=== PATIENT | female | born 1960 | race Caucasian/White ===

== ENCOUNTER 2021-02-21 07:48 | Outpatient (RCR) | payer BC, OTHER, SELFPAY ==
[2021-02-21] MEDS: ACETAMINOPHEN 325 MG TABLET 650 MG PO (15:37)
[2021-02-21] MEDS: FAMOTIDINE 20 MG TABLET PO (15:37)
[2021-02-21] MEDS: diphenhydrAMINE HCl CAP 25 MG CAPSULE PO (15:37)
[2021-02-21 15:38] VITALS: BP 140/58; PULSE 80; RESP 20; TEMP 36.3; O2SAT 99
[2021-02-21 17:00] VITALS: BP 144/66; PULSE 66; O2SAT 98
== END 2021-02-21 17:00 ==
LOC: AMCINF 07:48
PROVIDERS: PCP Nurse Practitioner Family; Referring Provider Nurse Practitioner Family; Visit Provider Internal Medicine Hematology & Oncology
DX: U07.1 COVID-19 (principal); I10 Essential (primary) hypertension; J44.9 Chronic obstructive pulmonary disease, unspecified
CPT/HCPCS: A9270; M0247

== ENCOUNTER → 2021-07-27 15:25 | Outpatient (CLI) | payer BC, OTHER, SELFPAY ==
--- NOTE | ~2021-07-27 | CT_ITS ---
EXAMINATION: CT abdomen pelvis wo con DATE: 07/27/2021 15:44 INDICATION: Lower abdominal and pelvic pain. Frequent urination, urinary urgency. TECHNIQUE: Computed tomography (CT) of the abdomen and pelvis was performed without intravenous contr ast. Automated exposure control and iterative reconstruction technique were employed. Exam dose: 253 .07 mGy-cm total exam DLP. COMPARISON: None. FINDINGS: Mild to moderate emphysematous changes are noted in the included lower lung zones. No infil trate or consolidation is noted. Normal heart size. No pericardial or pleural effusion. The liver, gallbladder, bile ducts, spleen, pancreas and pancreatic duct are unremarkable. Normal morphology of the adrenal glands. No renal mass lesion is evident on this limited noncontrast examination. No urinary tract calculus or hydroureteronephrosis. The urinary bladder is unremarkable. Status post hysterectomy. There is calcification of the abdominal aorta and prominent calcification at the origin the celiac an d superior mesenteric and renal arteries, including very prominent calcification of the proximal righ t renal artery.. No abdominal aortic aneurysm. There is prominent calcification of the iliac and femo ral arteries. No intraperitoneal or retroperitoneal or pelvic mass lesion or adenopathy or ascites. There are numerous diverticula of the sigmoid and descending colon; no CT evidence of diverticulitis. No bowel obstruction or intraperitoneal free air. Very small fat-containing umbilical hernia. Included skeletal structures are unremarkable. IMPRESSION: Mild to moderate emphysema Diverticulosis of left colon; no evidence of diverticulitis Status post hysterectomy Reviewed, dictated and finalized at [facility]. Reviewed, dictated and finalized at [facility].
== END ==
PROVIDERS: PCP Pediatrics; Visit Provider Nurse Practitioner Family
DX: R10.9 Unspecified abdominal pain (principal); K57.30 Diverticulosis of large intestine without perforation or abscess without bleeding; K42.9 Umbilical hernia without obstruction or gangrene
CPT/HCPCS: 74176

== ENCOUNTER → 2021-10-13 10:43 | Outpatient (CLI) | payer BC, OTHER, SELFPAY ==
--- NOTE | ~2021-10-13 | MR_ITS ---
EXAMINATION: MR lumbar spine wo con DATE: 10/13/2021 11:35 INDICATION: Chronic low back pain. TECHNIQUE: Magnetic resonance imaging (MRI) of the lumbar spine was performed without intravenous con trast. Sequences included sagittal T2-weighted FSE, sagittal T2-weighted FS FSE, sagittal T1-weighted FSE, and axial T2-weighted FSE. COMPARISON: None FINDINGS: There is 4 degrees levocurvature of lumbar spine. There is 3 mm retrolisthesis of L4 on L5. Vertebral body heights are normal. There is mildly decreased disc height at L2-L3 and L3-L4 and mode rately decreased disc height at L4-L5. The distal spinal cord signal intensity is normal. The conus m edullaris is at L1-L2. The following disc levels are specifically discussed: L1-L2: The disc does not extend beyond the endplate margin. There is mild bilateral facet joint osteo arthritis. There is no neural foraminal stenosis. There is no central canal stenosis. L2-L3: The disc is bulging. There is mild bilateral facet joint osteoarthritis. There is mild bilater al neural foraminal stenosis. There is mild central canal stenosis. L3-L4: The disc is bulging. There is mild bilateral facet joint osteoarthritis. There is mild bilater al neural foraminal stenosis. There is mild central canal stenosis. L4-L5: The disc is bulging. There is moderate right and mild left facet joint osteoarthritis. There i s moderate right and mild left neural foraminal stenosis. There is mild central canal stenosis. L5-S1: The disc does not extend beyond the endplate margin. There is moderate right and mild left fac et joint osteoarthritis. There is mild right neural foraminal stenosis. There is no central canal alvaro nosis. IMPRESSION: 1. Moderate lumbar spondylosis. Reviewed, dictated and finalized at [facility].
== END ==
PROVIDERS: PCP Pediatrics; Visit Provider Nurse Practitioner Family
DX: M47.896 Other spondylosis, lumbar region (principal)
CPT/HCPCS: 72148

== ENCOUNTER 2023-09-11 10:59 | Outpatient (CLI) | payer BC, SELFPAY ==
--- NOTE | ~2023-09-11 | CT_ITS ---
EXAMINATION: CT abdomen pelvis wo con DATE: 09/11/2023 11:24 INDICATION: Epigastric pain TECHNIQUE: Computed tomography (CT) of the abdomen and pelvis was performed without intravenous contr ast. The dose-length product was 152.69 mGy-cm. Automated exposure control and iterative reconstructi on technique were employed. COMPARISON: CT dated 07/28/2019. FINDINGS: There is emphysema. Lung bases are unremarkable. Heart size normal. No significant pleural or pericardial effusion. Nonobstructive bowel gas pattern. Colonic diverticulosis without evidence fo r diverticulitis. The liver, spleen, pancreas, adrenal glands and kidneys are unremarkable. Gallbladder is present. No free air or free fluid. Moderate lumbar spondylosis at L4-5. No acute osseous abnormality. IMPRESSION: 1. No acute abdominal abnormality. Reviewed, dictated and finalized at [facility].
== END 2023-09-11 11:00 ==
LOC: MICIMG 11:01
PROVIDERS: PCP Pediatrics; Visit Provider Family Medicine
DX: E53.8 Deficiency of other specified B group vitamins (principal); E11.22 Type 2 diabetes mellitus with diabetic chronic kidney disease; N18.32 Chronic kidney disease, stage 3b; Z72.0 Tobacco use
CPT/HCPCS: 74176

== ENCOUNTER 2023-11-18 00:51 | Day surgery (SDC) | payer BC, SELFPAY ==
[2023-11-04 14:29] VITALS: BMI 17.2
[2023-11-18 13:29] VITALS: BP 113/50; PULSE 66; RESP 16; TEMP 36.1; O2SAT 100; BMI 17.5
[2023-11-18] MEDS: LACTATED RINGERS 1,000 ML 150 ML IV CONT (13:54)
--- NOTE | 2023-11-18 14:01 | WPDANESEPPF ---
Anes - Initial Pre Proc Eval Procedure: Operation Date: 11/18/23 14:30 Proposed Procedures p Esophagogastroduodenoscopy - Brenton Mai MD Date/Time: 11/18/23 14:01 Surgeon: Brenton Mai MD Pre Op Diagnosis: Epigastric pain, Nausea Patient Data Age: 63 Gender: F Height: 1.52 m Weight: 40.8 kg Last Vital Signs Temp 97.0 F L 11/18/23 13:29 Pulse 66 11/18/23 13:29 Resp 16 11/18/23 13:29 BP 113/50 L 11/18/23 13:29 Pulse Ox 100 11/18/23 13:29 O2 Del Method Room Air 11/18/23 13:29 Allergies Allergy/AdvReac Type Severity Reaction Status Date / Time amoxicillin [From Augmentin] AdvReac Vomiting Verified 11/18/23 13:36 bupropion [From Wellbutrin] AdvReac Unknown Verified 11/18/23 13:36 clavulanic acid AdvReac Vomiting Verified 11/18/23 13:36 [From Augmentin] doxycycline AdvReac Unknown Verified 11/18/23 13:36 hydrochlorothiazide AdvReac Dizziness Verified 11/18/23 13:36 naproxen AdvReac Itching Verified 11/18/23 13:36 Home Medications Medication Instructions Recorded Confirmed Type alprazolam 0.5 mg tablet 0.5 mg PO BID 02/21/21 11/04/23 History aspirin 81 mg tablet 81 mg PO DAILY 02/21/21 11/04/23 History atorvastatin 40 mg tablet 40 mg PO DAILY 02/21/21 11/04/23 History fluoxetine 20 mg tablet 40 mg PO DAILY 02/21/21 11/04/23 History magnesium 200 mg tablet 200 mg PO DAILY 02/21/21 11/04/23 History potassium 99 mg tablet 99 mg PO DAILY 02/21/21 11/04/23 History spironolactone 25 mg tablet 50 mg PO DAILY 02/21/21 11/04/23 History albuterol sulfate 2.5 mg/3 mL 2.5 mg continuous nebulization PRN 11/04/23 11/04/23 History (0.083 %) solution for nebulization PRN Shortness Of Breath Or Wheezing buspirone 7.5 mg tablet 7.5 mg PO DAILY 11/04/23 11/04/23 History carvedilol 25 mg tablet 25 mg PO BID 11/04/23 11/04/23 History famotidine 20 mg tablet 20 mg PO DAILY 11/04/23 11/04/23 History ferrous sulfate 324 mg (65 mg 324 mg PO DAILY 11/04/23 11/04/23 History iron) tablet,delayed release fluticasone 250 mcg-salmeterol 50 1 inh inhalation BID 11/04/23 11/04/23 History mcg/dose blistr powdr for inhalation (Advair Diskus) isosorbide mononitrate 60 mg 60 mg PO DAILY 11/04/23 11/04/23 History tablet,extended release 24 hr ondansetron 4 mg disintegrating 4 mg translingual PRN PRN Nausea 11/04/23 11/04/23 History tablet terazosin 2 mg capsule 4 mg PO HS 11/04/23 11/04/23 History Patient hx anesthesia problems: none Family hx anesthesia problems: none Results Review: All pre-operative results and documents have been reviewed as part of the pre-operative evaluation. [facility] Social History Social History Smoking packs per day: 1 Smoking cigarettes per day: 20.0 Smoking status: Former smoker Tobacco type: cigarettes Alcohol intake: former Living arrangements: with family Marthas - Konstantin Final PreProcedure Day of Procedure 11/18/23 14:01 Patient weight: thin Heart: regular rate and rhythm Lungs: clear to auscultation Airway: Mallampati scale class 1 and special considerations Neurological: alert and oriented Last oral intake: >/= 8 hours ASA classification: III Emergent: no Anesthetic plan: proceed Anesthesia type and monitoring: general GIVS and standard monitoring Results Review: All pre-operative results and documents have been reviewed as part of the pre-operative evaluation. HTN, hyperlipidemia, PVD w reanl stent. Now EGD for wt loss/gerd. Informed Consent: The patient's anesthetic plan and its attendant risks and benefits were discussed with the patient/family/POA. Questions were solicited and answers provided to the satisfaction of the patient/family/POA.
--- NOTE | 2023-11-18 14:15 | PM.HPGS ---
History of Present Illness History of Present Illness Consent: Risks, benefits, and alternatives have been discussed and questions answered. Patient agrees to proceed with procedure. Chief complaint: Epigastric pain, Nausea Narrative: Renae Dumas is a 63 year old female with epigastric pain and weight loss, ct scan no major findings, had colonoscopy last year Review of Systems Review of Systems: All systems reviewed & are unremarkable except as noted in HPI and below PMFSH Past Medical History Medical History (Updated 11/18/23 @ 14:18 by Brenton Mai MD) Epigastric pain Weight loss Social History Social History Smoking packs per day: 1 Smoking cigarettes per day: 20.0 Smoking status: Former smoker Tobacco type: cigarettes Alcohol intake: former Living arrangements: with family Meds Home Medications and Allergies Home Medications Medication Instructions Recorded Confirmed Type alprazolam 0.5 mg tablet 0.5 mg PO BID 02/21/21 11/04/23 History aspirin 81 mg tablet 81 mg PO DAILY 02/21/21 11/04/23 History atorvastatin 40 mg tablet 40 mg PO DAILY 02/21/21 11/04/23 History fluoxetine 20 mg tablet 40 mg PO DAILY 02/21/21 11/04/23 History magnesium 200 mg tablet 200 mg PO DAILY 02/21/21 11/04/23 History potassium 99 mg tablet 99 mg PO DAILY 02/21/21 11/04/23 History spironolactone 25 mg tablet 50 mg PO DAILY 02/21/21 11/04/23 History albuterol sulfate 2.5 mg/3 mL 2.5 mg continuous nebulization PRN 11/04/23 11/04/23 History (0.083 %) solution for nebulization PRN Shortness Of Breath Or Wheezing buspirone 7.5 mg tablet 7.5 mg PO DAILY 11/04/23 11/04/23 History carvedilol 25 mg tablet 25 mg PO BID 11/04/23 11/04/23 History famotidine 20 mg tablet 20 mg PO DAILY 11/04/23 11/04/23 History ferrous sulfate 324 mg (65 mg 324 mg PO DAILY 11/04/23 11/04/23 History iron) tablet,delayed release fluticasone 250 mcg-salmeterol 50 1 inh inhalation BID 11/04/23 11/04/23 History mcg/dose blistr powdr for inhalation (Advair Diskus) isosorbide mononitrate 60 mg 60 mg PO DAILY 11/04/23 11/04/23 History tablet,extended release 24 hr ondansetron 4 mg disintegrating 4 mg translingual PRN PRN Nausea 11/04/23 11/04/23 History tablet terazosin 2 mg capsule 4 mg PO HS 11/04/23 11/04/23 History Allergies Allergy/AdvReac Type Severity Reaction Status Date / Time amoxicillin [From Augmentin] AdvReac Vomiting Verified 11/18/23 13:36 bupropion [From Wellbutrin] AdvReac Unknown Verified 11/18/23 13:36 clavulanic acid AdvReac Vomiting Verified 11/18/23 13:36 [From Augmentin] doxycycline AdvReac Unknown Verified 11/18/23 13:36 hydrochlorothiazide AdvReac Dizziness Verified 11/18/23 13:36 naproxen AdvReac Itching Verified 11/18/23 13:36 Vital Signs Vital Signs - 24 hr 11/18/23 13:29 Temperature 97.0 F L Pulse Rate 66 Respiratory Rate 16 Blood Pressure 113/50 L Pulse Oximetry 100 Oxygen Delivery Room Air Exam Const: General: comfortable and no acute distress HENMT: Face/Nose/Sinus: Normal nares present Eyes: General: appearance normal, both eyes and all related structures Neck: Neck: no JVD Resp: Auscultation: clear to auscultation bilaterally Cardio: Rate: regular rate Rhythm: regular rhythm GI: Inspection: non-distended GI Palp: Yes Soft to palpation Skin: General skin exam: normal color Neuro: General: gait normal Speech: normal speech Extrem: General: normal to inspection Psych: Mental Status: mental status grossly normal Assessment and Plan Assessment and plan (1) Epigastric pain: Code(s): R10.13 - Epigastric pain Status: Acute Assessment and Plan: egd with bx (2) Weight loss: Code(s): R63.4 - Abnormal weight loss Status: Acute
[2023-11-18 14:28] VITALS: BP 87/38; PULSE 64; RESP 26; O2SAT 99
[2023-11-18 14:38] VITALS: BP 108/54; PULSE 63; RESP 12; O2SAT 100
[2023-11-18 14:48] VITALS: BP 128/59; PULSE 63; RESP 19; O2SAT 100
== END 2023-11-18 15:05 | disposition home or self-care (01) ==
PROVIDERS: PCP Pediatrics; Referring Provider Family Medicine; Visit Provider Internal Medicine Gastroenterology
PROC: 0DJ08ZZ Inspection of Upper Intestinal Tract, Via Natural or Artificial Opening Endoscopic (ICD-10-PCS; CPT 43235; principal; 2023-11-18 14:30)
DX: K29.50 Unspecified chronic gastritis without bleeding (principal); K29.80 Duodenitis without bleeding; Z79.82 Long term (current) use of aspirin; Z79.51 Long term (current) use of inhaled steroids; Z87.891 Personal history of nicotine dependence
CPT/HCPCS: 43239; 88305; J2003; J2704; J7120